=== PATIENT | female | born 1945 | race Caucasian/White ===

== ENCOUNTER → 2018-12-11 | Outpatient (CLI) | payer MEDICARE ==
--- NOTE | 2018-12-13 08:47 | MR ---
EXAMINATION TYPE: MR chest wo/w con DATE OF EXAM: 12/11/2018 COMPARISON: Outside CT abdomen and pelvis report November 12, 2018 HISTORY: Abnormal CT, chest mass CONTRAST: Standard multiplanar, multisequence MRI departmental protocol utilizing 6.5 mL intravenous Gadavist g adolinium contrast. FINDINGS: Correlating with outside CT report there is mass anterior right lung base abutting the medi astinum multiple fairly well-defined of fairly low T2-signal on nonfat saturation images with T2 hype rintense signal on fat saturation images. Lesion is fairly isointense relative to liver on T1-weighte d images with heterogeneous postcontrast enhancement. Lesion appears to abut the diaphragm and measur es approximately 7.0 cm AP diameter axial image 57 series 801 by 5.5 cm transversely coronal image 34 x 5 cm craniocaudal dimension coronal image 34. A lesion abuts the diaphragm but isn't definitively above the diaphragm. Coronal images appear to show curvilinear signal from mediastinum. There are no definitive additional masses in either lung. There is prominent enlarged peritracheal ly mph node measuring 2.0 x 1.4 cm axial image 32. There is trace right pleural effusion. No cardiomegaly or pericardial effusion. No obvious adrenal masses. Redemonstration of 1.0 x 0.8 cm t hin-walled cyst or cystic lesion in the mid to distal pancreatic body axial image 3 series 401. Gallb ladder is surgically absent. Osseous structures are in intact. Impression: Redemonstration of area of concern anterior right lung base favoring solid mass given het erogeneous enhancement. Suspect subcarinal adenopathy. Primary lung carcinoma needs to be first consi dered. Follow-up or correlation with chest CT is advised. Consider imaging guided sampling.
== END | disposition home or self-care (01) ==
LOC: RADMRIMAIN 12:30 → EDBD 13:15
PROVIDERS: ATTEND Nurse Practitioner Family
DX: R93.89 Abnormal findings on diagnostic imaging of other specified body structures (principal)
CPT/HCPCS: 71552; A9585